=== PATIENT | female | born 1990 | race American Indian/Alaskan Native ===

== ENCOUNTER 2022-11-20 18:32 | Emergency (ER) | payer SELFPAY ==
[2022-11-20] MEDS ORDERED: Sodium Chloride 0.9% 1,000 ML IV ONE (19:11)
[2022-11-20] MEDS ORDERED: Ketorolac 30 MG/ML SDV IVPUSH ONE (19:11)
[2022-11-20 19:31] LABS: BLOOD UREA NITROGEN,BUN 16 mg/dL (7-18); BUN/CREATININE RATIO 26.7 (9-20); CALCIUM 8.9 mg/dL (8.6-10.2); CARBON DIOXIDE,CO2 26 mmol/L (21-32); CHLORIDE,CL 103 mmol/L (100-110); CREATININE 0.6 mg/dL (0.55-1.02); ESTIMATED GFR 122 mL/min (>60); GLUCOSE RANDOM 101 mg/dL (80-116); POTASSIUM,K 3.9 mmol/L (3.5-5.3); SODIUM,NA 138 mmol/L (135-145)
[2022-11-20 19:32] LABS: BILIRUBIN,URINE NEGATIVE (NEGATIVE); GLUCOSE,URINE NORMAL (NORMAL); KETONES,URINE NEGATIVE (NEGATIVE); LEUKOCYTE ESTERASE,URINE NEGATIVE (NEGATIVE); NITRITE,URINE NEGATIVE (NEGATIVE); OCCULT BLOOD,URINE NEGATIVE (NEGATIVE); PROTEIN,URINE TRACE mg/dL (NEGATIVE); UROBILINOGEN,URINE NORMAL (NEGATIVE)
[2022-11-20 19:35] LABS: BASOPHILS ABSOLUTE AUTO 0.1 x10-3/uL (0.0-0.1); BASOPHILS PERCENT AUTO 0.8 % (0.2-1.5); EOSINOPHILS ABSOLUTE AUTO 0.1 x10-3/uL (0.0-0.8); EOSINOPHILS PERCENT AUTO 1.1 % (0.6-8.1); HEMATOCRIT 33.5 % (34.2-48.2); HEMOGLOBIN 10.9 g/dL (11.4-15.5); LYMPHOCYTES ABSOLUTE AUTO 3.6 x10-3/uL (1.0-4.4); LYMPHOCYTES PERCENT AUTO 33.2 % (18.4-52.1); MEAN CORPUSCULAR HEMOGLOBIN 26.6 pg (23.9-33.9); MEAN CORPUSCULAR HGB CONC 32.5 g/dL (31.9-34.8); MEAN CORPUSCULAR VOLUME 81.9 fL (76.7-100.5); MONOCYTES ABSOLUTE AUTO 0.5 x10-3/uL (0.3-1.0); MONOCYTES PERCENT AUTO 4.8 % (4.4-15.7); NEUTROPHILS ABSOLUTE AUTO 6.5 x10-3/uL (1.5-6.3); NEUTROPHILS PERCENT AUTO 60.1 % (30.8-76.2); PLATELET COUNT,PLT 337 x10(3)uL (151-488); RED BLOOD CELL COUNT 4.09 x10(6)uL (3.60-5.20); RED CELL DISTRIBUTION WIDTH 16.7 % (12.3-16.5); WHITE BLOOD CELL COUNT,WBC 10.8 x10-3/uL (3.0-10.3)
[2022-11-20 19:37] LABS: A/G RATIO 0.9; ALANINE AMINOTRANSFERASE,ALT 44 U/L (12-36); ALBUMIN 3.1 g/dL (3.5-5.2); ALKALINE PHOSPHATASE 99 IU/L (56-112); ASPARTATE AMNIOTRANSFERASE,AST 40 IU/L (5-25); BILIRUBIN TOTAL 0.2 mg/dL (0.1-1.3); PROTEIN TOTAL,TP 6.5 g/dL (6.0-8.0)
[2022-11-20 19:38] LABS: C-REACTIVE PROTEIN 0.78 mg/dL (<0.33); TROPONIN I 55.2 pg/mL (4.0-60.3)
[2022-11-20 19:45] LABS: APPEARANCE,URINE CLEAR (CLEAR); COLOR,URINE YELLOW (YELLOW); RBC,URINE 0-5 (0-5); SQUAMOUS EPITHELIAL CELLS,UR FEW (NS,R,O); WBC,URINE 0-5 (0-5)
[2022-11-20 19:46] LABS: BACTERIA,URINE FEW (NS)
[2022-11-20] MEDS ORDERED: Labetalol 20 MG/4 ML Syringe IVPUSH ONE (20:05)
[2022-11-20] MEDS ORDERED: Iopamidol 755 Mg/ML 100 ML Bottle IV SCH (20:45)
[2022-11-20] MEDS ORDERED: Piperacillin/Tazobactam 4.5 GM in Sodium Chloride 0.9% 100 ML IV ONE (22:15)
[2022-11-20] MEDS ORDERED: Pantoprazole 40 MG Vial IVPUSH ONE (22:16)
[2022-11-20] MEDS ORDERED: Morphine 2 MG/ML SYRINGE IVPUSH ONE (23:29)
== END 2022-11-20 23:45 ==
LOC: FB.ED 18:32
DX: K81.9 Cholecystitis, unspecified (principal); R23.4 Changes in skin texture; R79.89 Other specified abnormal findings of blood chemistry; J90 Pleural effusion, not elsewhere classified; E88.09 Other disorders of plasma-protein metabolism, not elsewhere classified; R18.8 Other ascites; R16.0 Hepatomegaly, not elsewhere classified; R79.82 Elevated C-reactive protein (CRP); D64.9 Anemia, unspecified; R94.31 Abnormal electrocardiogram [ECG] [EKG]; F10.10 Alcohol abuse, uncomplicated; R03.0 Elevated blood-pressure reading, without diagnosis of hypertension
CPT/HCPCS: 74177; 80053; 81001; 81025; 82272; 83605; 83690; 83735; 84484; 85025; 86140; 93005; 96361; 96365; 96375; 99285; C9113; J1885; J2270; J2543; J3490; J7030; Q9967; 93010; 99284

== ENCOUNTER 2022-12-07 09:11 | Emergency (ER) | payer MEDICAID ==
[2022-12-07] MEDS ORDERED: Nitroglycerin 0.4 MG Tab.SL SL ONE ×3 (09:47→10:31)
[2022-12-07] MEDS ORDERED: Aspirin 81 MG Tab.Chew PO ONE (09:48)
[2022-12-07 10:07] LABS: BASOPHILS ABSOLUTE AUTO 0.1 x10-3/uL (0.0-0.1); BASOPHILS PERCENT AUTO 0.7 % (0.2-1.5); EOSINOPHILS ABSOLUTE AUTO 0.1 x10-3/uL (0.0-0.8); EOSINOPHILS PERCENT AUTO 1.1 % (0.6-8.1); HEMATOCRIT 33.5 % (34.2-48.2); HEMOGLOBIN 10.8 g/dL (11.4-15.5); LYMPHOCYTES ABSOLUTE AUTO 2.4 x10-3/uL (1.0-4.4); LYMPHOCYTES PERCENT AUTO 33.3 % (18.4-52.1); MEAN CORPUSCULAR HEMOGLOBIN 26.4 pg (23.9-33.9); MEAN CORPUSCULAR HGB CONC 32.3 g/dL (31.9-34.8); MEAN CORPUSCULAR VOLUME 81.7 fL (76.7-100.5); MEAN PLATELET VOLUME 8.6 fL (7.1-12.4); MONOCYTES ABSOLUTE AUTO 0.4 x10-3/uL (0.3-1.0); MONOCYTES PERCENT AUTO 5.5 % (4.4-15.7); NEUTROPHILS ABSOLUTE AUTO 4.3 x10-3/uL (1.5-6.3); NEUTROPHILS PERCENT AUTO 59.4 % (30.8-76.2); PLATELET COUNT,PLT 338 x10(3)uL (151-488); RED CELL DISTRIBUTION WIDTH 16.6 % (12.3-16.5); WHITE BLOOD CELL COUNT,WBC 7.3 x10-3/uL (3.0-10.3)
[2022-12-07 10:08] LABS: BLOOD UREA NITROGEN,BUN 12 mg/dL (7-18); BUN/CREATININE RATIO 17.1 (9-20); CALCIUM 8.4 mg/dL (8.6-10.2); CARBON DIOXIDE,CO2 25 mmol/L (21-32); CHLORIDE,CL 104 mmol/L (100-110); CREATININE 0.7 mg/dL (0.55-1.02); EST CRCL DRUG DOSING (CG) 91.25 mL/min; ESTIMATED GFR 118 mL/min (>60); GLUCOSE RANDOM 100 mg/dL (80-116); POTASSIUM,K 3.8 mmol/L (3.5-5.3); SODIUM,NA 138 mmol/L (135-145)
[2022-12-07 10:14] LABS: ALANINE AMINOTRANSFERASE,ALT 30 U/L (12-36); ALBUMIN 3.3 g/dL (3.5-5.2); ALKALINE PHOSPHATASE 83 IU/L (56-112); ASPARTATE AMNIOTRANSFERASE,AST 20 IU/L (5-25); BILIRUBIN TOTAL 0.2 mg/dL (0.1-1.3); PROTEIN TOTAL,TP 6.6 g/dL (6.0-8.0)
[2022-12-07 10:21] LABS: TROPONIN I 50.3 pg/mL (4.0-60.3)
[2022-12-07 10:34] LABS: PTT,PARTIAL THROMBOPLSTIN TIME 25.6 SECONDS (24.4-33.2)
[2022-12-07 10:38] LABS: INR 1.02 (1.00-1.24); PROTHROMBIN TIME 10.5 sec (9.0-11.1)
[2022-12-07 11:05] LABS: BILIRUBIN,URINE NEGATIVE (NEGATIVE); GLUCOSE,URINE NORMAL (NORMAL); KETONES,URINE NEGATIVE (NEGATIVE); LEUKOCYTE ESTERASE,URINE NEGATIVE (NEGATIVE); NITRITE,URINE NEGATIVE (NEGATIVE); OCCULT BLOOD,URINE LARGE (NEGATIVE); PROTEIN,URINE NEGATIVE (NEGATIVE); UROBILINOGEN,URINE NORMAL (NEGATIVE)
[2022-12-07 11:08] LABS: APPEARANCE,URINE SLIGHTLY CLOUDY (CLEAR); COLOR,URINE YELLOW (YELLOW); SQUAMOUS EPITHELIAL CELLS,UR FEW (NS,R,O); WBC,URINE 0-5 (0-5)
[2022-12-07 11:09] LABS: BACTERIA,URINE FEW (NS); METHAMPHETAMINE SCREEN, URINE NEGATIVE (NEGATIVE); THC SCREEN,URINE NEGATIVE (NEGATIVE)
[2022-12-07 11:10] LABS: AMPHETAMINES SCREEN, URINE NEGATIVE (NEGATIVE); BARBITURATE SCREEN,URINE NEGATIVE (NEGATIVE); BENZODIAZEPINES SCREEN,URINE NEGATIVE (NEGATIVE); BUPRENORPHINE SCREEN,URINE NEGATIVE (NEGATIVE); METHADONE SCREEN, URINE NEGATIVE (NEGATIVE); OXYCODONE SCREEN,URINE NEGATIVE (NEGATIVE); PROPOXYPHENE SCREEN,URINE NEGATIVE (NEGATIVE)
== END 2022-12-07 11:56 | disposition home or self-care (01) ==
LOC: FB.ED 09:11
DX: R07.9 Chest pain, unspecified (principal); I50.9 Heart failure, unspecified; D64.9 Anemia, unspecified; F17.210 Nicotine dependence, cigarettes, uncomplicated
CPT/HCPCS: 36415; 71045; 80053; 80307; 81001; 83880; 84484; 85025; 85610; 85730; 93005; 99285; A9270

== ENCOUNTER 2023-12-16 19:45 | Emergency (ER) | payer MEDICAID ==
[2023-12-16 20:35] LABS: BLOOD UREA NITROGEN,BUN 15 mg/dL (7-18); BUN/CREATININE RATIO 18.8 (9-20); CALCIUM 8.8 mg/dL (8.6-10.2); CARBON DIOXIDE,CO2 26 mmol/L (21-32); CHLORIDE,CL 101 mmol/L (100-110); CREATININE 0.8 mg/dL (0.55-1.02); ESTIMATED GFR 100 mL/min (>60); GLUCOSE RANDOM 101 mg/dL (80-116); SODIUM,NA 138 mmol/L (135-145)
[2023-12-16 20:37] LABS: BASOPHILS ABSOLUTE AUTO 0.1 x10-3/uL (0.0-0.1); EOSINOPHILS PERCENT AUTO 0.4 % (0.6-8.1); HEMATOCRIT 35.5 % (34.2-48.2); HEMOGLOBIN 11.7 g/dL (11.4-15.5); LYMPHOCYTES ABSOLUTE AUTO 2.9 x10-3/uL (1.0-4.4); LYMPHOCYTES PERCENT AUTO 35.6 % (18.4-52.1); MEAN CORPUSCULAR HEMOGLOBIN 29.6 pg (23.9-33.9); MEAN CORPUSCULAR HGB CONC 32.9 g/dL (31.9-34.8); MEAN CORPUSCULAR VOLUME 89.9 fL (76.7-100.5); MEAN PLATELET VOLUME 7.4 fL (7.1-12.4); MONOCYTES ABSOLUTE AUTO 0.4 x10-3/uL (0.3-1.0); MONOCYTES PERCENT AUTO 5.1 % (4.4-15.7); NEUTROPHILS ABSOLUTE AUTO 4.7 x10-3/uL (1.5-6.3); NEUTROPHILS PERCENT AUTO 57.9 % (30.8-76.2); PLATELET COUNT,PLT 368 x10(3)uL (151-488); RED BLOOD CELL COUNT 3.95 x10(6)uL (3.60-5.20); WHITE BLOOD CELL COUNT,WBC 8.1 x10-3/uL (3.0-10.3)
[2023-12-16 20:41] LABS: A/G RATIO 1.1; ALANINE AMINOTRANSFERASE,ALT 27 U/L (12-36); ALBUMIN 3.9 g/dL (3.5-5.2); ALKALINE PHOSPHATASE 82 IU/L (56-112); ASPARTATE AMNIOTRANSFERASE,AST 31 IU/L (5-25); BILIRUBIN TOTAL 1.2 mg/dL (0.1-1.3); MAGNESIUM 1.8 mg/dL (1.8-2.5); PROTEIN TOTAL,TP 7.5 g/dL (6.0-8.0)
[2023-12-16 20:43] LABS: INR 1.4 (1.00-1.24); PROTHROMBIN TIME 14.1 sec (9.0-11.1)
[2023-12-16 20:46] LABS: PTT,PARTIAL THROMBOPLSTIN TIME 30.1 SECONDS (24.4-33.2)
[2023-12-16 20:57] LABS: C-REACTIVE PROTEIN < 0.50 mg/dL (<0.50)
[2023-12-16 21:01] LABS: BILIRUBIN,URINE NEGATIVE (NEGATIVE); GLUCOSE,URINE NORMAL (NORMAL); KETONES,URINE NEGATIVE (NEGATIVE); LEUKOCYTE ESTERASE,URINE LARGE (NEGATIVE); NITRITE,URINE NEGATIVE (NEGATIVE); OCCULT BLOOD,URINE NEGATIVE (NEGATIVE); PROTEIN,URINE NEGATIVE (NEGATIVE); UROBILINOGEN,URINE NORMAL (NEGATIVE)
[2023-12-16 21:29] LABS: APPEARANCE,URINE CLOUDY (CLEAR); COLOR,URINE YELLOW (YELLOW); RBC,URINE 0-5 (0-5); WBC,URINE 50-75 (0-5)
[2023-12-16 21:30] LABS: BACTERIA,URINE MODERATE (NS); HYALINE CASTS,URINE FEW (NS); SQUAMOUS EPITHELIAL CELLS,UR FEW (NS,R,O)
[2023-12-16 21:45] LABS: AMPHETAMINES SCREEN, URINE POSITIVE (NEGATIVE); BARBITURATE SCREEN,URINE NEGATIVE (NEGATIVE); BENZODIAZEPINES SCREEN,URINE NEGATIVE (NEGATIVE); BUPRENORPHINE SCREEN,URINE NEGATIVE (NEGATIVE); METHADONE SCREEN, URINE NEGATIVE (NEGATIVE); METHAMPHETAMINE SCREEN, URINE POSITIVE (NEGATIVE); OXYCODONE SCREEN,URINE NEGATIVE (NEGATIVE); THC SCREEN,URINE NEGATIVE (NEGATIVE)
[2023-12-16] MEDS ORDERED: Naloxone 0.4 MG/ML SDV IVPUSH PRN (22:46)
[2023-12-16] MEDS: Morphine 2 MG/ML SYRINGE IVPUSH ONE ×2 (22:59→23:49)
[2023-12-16] MEDS: Sodium Chloride 0.9% 1,000 ML IV SCH (23:46)
[2023-12-16] MEDS: Aspirin 81 MG Tab.Chew PO ONE (23:47)
[2023-12-16] MEDS: cefTRIAXone 1 GM Vial IVPUSH ONE (23:51)
[2023-12-17] MEDS: Heparin Sodium/0.45% NaCl 500 ML IV SCH (00:15)
[2023-12-17] MEDS: Heparin Sodium 5,000 Units/ML Vial IVPUSH ONE (00:18)
== END 2023-12-17 00:40 ==
LOC: FB.ED 19:45
DX: K70.31 Alcoholic cirrhosis of liver with ascites (principal); I21.4 Non-ST elevation (NSTEMI) myocardial infarction; F10.10 Alcohol abuse, uncomplicated; F15.10 Other stimulant abuse, uncomplicated; F17.200 Nicotine dependence, unspecified, uncomplicated; Z79.899 Other long term (current) drug therapy
CPT/HCPCS: 36415; 80053; 80307; 81001; 81025; 83735; 84484; 85025; 85610; 85730; 86140; 87086; 93005; 93010; 96361; 96365; 96375; 96376; 99285; A9270; J0696; J1644; J2270; J7030